=== PATIENT | male | born 1970 | race Caucasian/White ===

== ENCOUNTER → 2017-02-07 | Outpatient (CLI) | payer OTHER ==
[~2017-02-07] MED LIST: KETO60IN6 IM; METH125I2 IM
== END ==
LOC: CLAB 08:30
PROVIDERS: ATTEND Nurse Practitioner Family
DX: E78.5 Hyperlipidemia, unspecified (principal)
CPT/HCPCS: 36415; 80061

== ENCOUNTER 2018-01-19 00:52 | Emergency (ER) | payer OTHER ==
[~2018-01-19] VITALS: Ht 175.3 cm; Wt 65.0 kg
[2018-01-19 01:31] VITALS: BP 120/75; PULSE 96; RESP 18; TEMP 96.5; O2SAT 100
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
[2018-01-19] MEDS ORDERED: ALBUAER3 INH (02:10)
[2018-01-19 06:22] VITALS: BP 112/63; PULSE 89; RESP 14; O2SAT 96
[2018-01-19 08:09] VITALS: BP 116/69; PULSE 86; RESP 20; O2SAT 95
== END 2018-01-19 10:40 | disposition home or self-care (01) ==
LOC: NEPD 00:52
DX: F10.129 Alcohol abuse with intoxication, unspecified (principal); R06.2 Wheezing; F17.200 Nicotine dependence, unspecified, uncomplicated; Z79.51 Long term (current) use of inhaled steroids
CPT/HCPCS: 99283